=== PATIENT | female | born 1980 | race Caucasian/White ===

== ENCOUNTER 2017-06-18 19:34 | Emergency (ER) | payer OTHER ==
[2017-06-18 20:15] VITALS: BP 132/86; PULSE 74; RESP 18; TEMP 97.8
--- NOTE | 2017-06-18 20:22 | ED ---
General Adult HPI - General Chief complaint: Animal Bite Stated complaint: Health Dept Sent/Bat bite Time Seen by Provider: 06/18/17 20:22 Source: patient Mode of arrival: ambulatory Limitations: no limitations - History of Present Illness Initial comments: Patient is a 37-year-old female with no significant past medical history presents to the ED with her family for evaluation of exposure to bat in their home. Patient presents with no complaints of reports she is in her usual state of health. Per patient they recently moved into a new house in the past month. On Wednesday of last week they noted that there were 3 bats in Keily's bedroom. They called a company to remove the bats. Patient reports that on Wednesday they noted that the youngest daughter Sangeeta had a spot on her right lateral ankle which they initially thought was a bug bite. Family reports that on Wednesday of this week they wound a bat in Sangeeta's bedroom. At that time family reports they called another [employer] for removal. Initially all of the bats cannot be removed because some of them were apparently babies and unable to fly and then initial [employer] told him that they cannot remove or kill baby bats. However they believe at this time that all of the bats have been removed from the home. The employees of the second [employer] advised the family that if there is any exposure to bats that they should be evaluated by the health clinic. Patient reports that she called Sangeeta's dental technology advisor and oncologist who both advised that they be evaluated and likely the entire family will need treatment for rabies exposure. Patient went to the health department today who advised them to come to the emergency department for rabies exposure treatment. - Related Data Home Medications Medication Instructions Recorded Confirmed Cyanocobalamin (Vitamin B-12) 1,000 mcg PO DAILY 06/18/17 06/18/17 [Vitamin B-12] Allergies Allergy/AdvReac Type Severity Reaction Status Date / Time Carbamates Allergy Unknown Verified 06/18/17 20:47 formaldehyde Allergy Unknown Verified 06/18/17 20:47 nickel Allergy Rash/Hives Verified 06/18/17 20:47 Review of Systems ROS Statement: Those systems with pertinent positive or pertinent negative responses have been documented in the HPI. ROS Other: All systems not noted in ROS Statement are negative. Constitutional: Denies: fever ENT: Denies: throat pain Respiratory: Denies: cough, dyspnea Cardiovascular: Denies: chest pain Endocrine: Denies: fatigue Gastrointestinal: Denies: nausea, vomiting Genitourinary: Denies: urgency Musculoskeletal: Denies: back pain Skin: Denies: rash, lesions Neurological: Denies: headache, weakness Hematological/Lymphatic: Denies: easy bleeding, easy bruising Past Medical History Past Medical History: No Reported History History of Any Multi-Drug Resistant Organisms: None Reported Past Surgical History: No Surgical Hx Reported Past Psychological History: No Psychological Hx Reported Smoking Status: Never smoker Past Alcohol Use History: Rare Past Drug Use History: None Reported General Exam Limitations: no limitations General appearance: alert, in no apparent distress Head exam: Present: atraumatic, normocephalic, normal inspection Eye exam: Present: normal appearance, PERRL, EOMI. Absent: scleral icterus, conjunctival injection, periorbital swelling ENT exam: Present: normal exam, mucous membranes moist Neck exam: Present: normal inspection. Absent: tenderness, meningismus, lymphadenopathy Respiratory exam: Present: normal lung sounds bilaterally. Absent: respiratory distress, wheezes, rales, rhonchi, stridor Cardiovascular Exam: Present: regular rate, normal rhythm, normal heart sounds. Absent: systolic murmur, diastolic murmur, rubs, gallop, clicks GI/Abdominal exam: Present: soft, normal bowel sounds. Absent: distended, tenderness, guarding, rebound, rigid Extremities exam: Present: normal inspection, full ROM, normal capillary refill. Absent: tenderness, pedal edema, joint swelling, calf tenderness Back exam: Present: normal inspection Neurological exam: Present: alert, oriented X3, CN II-XII intact Psychiatric exam: Present: normal affect, normal mood Skin exam: Present: warm, dry, intact, normal color. Absent: rash Course Vital Signs 06/18/17 20:10 Temperature 97.8 F Pulse Rate 74 Respiratory 18 Rate Blood Pressure 132/86 O2 Sat by Pulse 97 Oximetry Medical Decision Making - Medical Decision Making Patient was seen and evaluated with her entire family at bedside Patient and family with concern for exposure to bats Will treat with rabies immunoglobin and rabies vaccine Patient care was discussed with Dr. Payne who recommended rabies immunoglobulin as well as rabies vaccine on days 0, 1, 3, 5 and 7. Weight based Immunoglobulin and rabies vaccine were ordered for today prescriptions were given for follow-up at the [facility] for repeat rabies vaccination Disposition Clinical Impression: Rabies contact Disposition: HOME SELF-CARE Condition: Good Instructions: Animal Bite (ED), Rabies Immune Globulin (By injection), Rabies Vaccine (ED) Referrals: Nonstaff,Physician [Primary Care Provider] - 1-2 days Time of Disposition: 22:14
[2017-06-18] MEDS ORDERED: RABIES IMMUNE GLOB 150 UNIT/ML 10 ML VIAL IM ONE (20:49)
[2017-06-18] MEDS ORDERED: RABIES IMMUNE GLOB 150UNIT/ML 2 ML VIAL IM ONE (21:15)
[2017-06-18] MEDS ORDERED: RABIES VACC,HUMAN DIPLOID (PF) 2.5 UNIT KIT IM ONE (21:15)
[2017-06-18] MEDS ORDERED: RABIES VACCINE (PCEC) 2.5 UNIT KIT IM ONE (21:30)
== END 2017-06-18 23:57 | disposition home or self-care (01) ==
LOC: EC 19:34
DX: Z20.3 Contact with and (suspected) exposure to rabies (principal); Z23 Encounter for immunization; Z79.899 Other long term (current) drug therapy; Z88.8 Allergy status to other drugs, medicaments and biological substances; Z91.048 Other nonmedicinal substance allergy status
CPT/HCPCS: 90375; 90471; 90675; 96372; 99283

== ENCOUNTER 2017-11-18 09:09 | Emergency (ER) | payer OTHER ==
[2017-11-18] MEDS ORDERED: IBUPROFEN 800 MG TAB PO STA (09:34)
[2017-11-18] MEDS ORDERED: ACETAMINOPHEN TAB 500 MG TAB PO STA (09:34)
--- NOTE | 2017-11-18 09:36 | ED ---
URI HPI - General Chief Complaint: Upper Respiratory Infection Stated Complaint: FLU LIKE SYMPTOMS Time Seen by Provider: 11/18/17 09:26 Source: patient, RN notes reviewed Mode of arrival: ambulatory Limitations: no limitations - History of Present Illness Initial Comments: 37-year-old female presents emergency Department chief complaint cough, fever, body aches. Patient states that she's had a dry cough since around [place] but states on Wednesday she developed a fever and change in her symptoms. She states that she developed congestion very achy with a high fever. She saw her primary care physician who thought that she did not have influenza and give her azithromycin. Patient states that she had no chest x-ray. She states that she said some sick contacts with similar symptoms but nobody with fever. Patient denies any nausea vomiting diarrhea constipation. Denies any chest pain or shortness breath. Denies ear pain, sore throat. - Related Data Home Medications Medication Instructions Recorded Confirmed Ascorbic Acid [Vitamin C] 500 mg PO DAILY 11/18/17 11/18/17 Azithromycin [Zithromax Z-pack] See Taper PO DIRECTED 11/18/17 11/18/17 Cholecalciferol [Vitamin D3] 1,000 unit PO DAILY 11/18/17 11/18/17 Hydrocodone/Chlorphen P-Stirex 5 ml PO Q12HR PRN 11/18/17 11/18/17 [Tussionex] Loratadine [Claritin] 10 mg PO DAILY 11/18/17 11/18/17 Previous Rx's Medication Instructions Recorded Oseltamivir [Tamiflu] 75 mg PO Q12HR #10 cap 11/18/17 Allergies Allergy/AdvReac Type Severity Reaction Status Date / Time Carbamates Allergy Unknown Verified 11/18/17 09:38 formaldehyde Allergy Unknown Verified 11/18/17 09:38 nickel Allergy Rash/Hives Verified 11/18/17 09:38 fragrance Allergy Rash/Hives Uncoded 11/18/17 09:25 Review of Systems ROS Statement: Those systems with pertinent positive or pertinent negative responses have been documented in the HPI. ROS Other: All systems not noted in ROS Statement are negative. Past Medical History Past Medical History: No Reported History Additional Past Medical History / Comment(s): uterine fibroids, endometrialhyperplasia History of Any Multi-Drug Resistant Organisms: None Reported Past Surgical History: No Surgical Hx Reported Additional Past Surgical History / Comment(s): wisdom teeth Past Psychological History: Depression Smoking Status: Never smoker Past Alcohol Use History: None Reported Past Drug Use History: None Reported General Exam Limitations: no limitations General appearance: alert, in no apparent distress Head exam: Present: atraumatic, normocephalic, normal inspection Eye exam: Present: normal appearance, PERRL, EOMI. Absent: scleral icterus, conjunctival injection, periorbital swelling ENT exam: Present: normal exam, mucous membranes dry, mucous membranes moist, TM 's normal bilaterally, normal external ear exam Neck exam: Present: normal inspection, full ROM. Absent: tenderness, meningismus, lymphadenopathy Respiratory exam: Present: normal lung sounds bilaterally. Absent: respiratory distress, wheezes, rales, rhonchi, stridor Cardiovascular Exam: Present: normal rhythm, tachycardia, normal heart sounds. Absent: systolic murmur, diastolic murmur, rubs, gallop, clicks GI/Abdominal exam: Present: soft, normal bowel sounds. Absent: distended, tenderness, guarding, rebound, rigid Course Vital Signs 11/18/17 09:20 Temperature 102.2 F H Pulse Rate 110 H Respiratory 20 Rate Blood Pressure 127/83 O2 Sat by Pulse 96 Oximetry Medical Decision Making - Medical Decision Making 37-year-old female presented emergency from for fever chills body aches it started 2 days ago. Patient's symptoms consistent with influenza influenza A positive. Chest x-ray shows no acute abnormality. Patient is requesting Tamiflu it did explain and may not be helpful although will be prescribed. We discussed Tylenol Motrin and have her recheck in 2 days. - Lab Data Lab Results 11/18/17 Range/Units 09:35 Influenza Type A RNA Detected H (Not Detectd) Influenza Type B (PCR) Not Detected (Not Detectd) Disposition Clinical Impression: Influenza Disposition: HOME SELF-CARE Condition: Stable Instructions: Influenza (ED) Additional Instructions: Please return to the Emergency Department if symptoms worsen or any other concerns. Prescriptions: Oseltamivir [Tamiflu] 75 mg PO Q12HR #10 cap Referrals: Nonstaff,Physician [Primary Care Provider] - 1-2 days Time of Disposition: 10:18
--- NOTE | 2017-11-18 09:57 | XR ---
EXAMINATION TYPE: XR chest 2V DATE OF EXAM: 11/18/2017 COMPARISON: NONE HISTORY: Cough and congestion for 2 weeks. Fever for 2 days. TECHNIQUE: Frontal and lateral views of the chest are obtained. FINDINGS: There is no focal air space opacity, pleural effusion, or pneumothorax seen. The cardiac silhouette size is within normal limits. The osseous structures are intact. IMPRESSION: No suspicious acute pulmonary process.
[2017-11-18 10:35] VITALS: BP 126/75; PULSE 102; RESP 16; TEMP 100
== END 2017-11-18 10:32 | disposition home or self-care (01) ==
LOC: EC 09:09
DX: J09.X2 Influenza due to identified novel influenza A virus with other respiratory manifestations (principal); Z79.899 Other long term (current) drug therapy; Z88.8 Allergy status to other drugs, medicaments and biological substances; Z91.048 Other nonmedicinal substance allergy status
CPT/HCPCS: 71046; 87502; 99283

== ENCOUNTER 2019-11-04 02:56 | Emergency (ER) | payer OTHER ==
--- NOTE | 2019-11-04 03:38 | XR ---
EXAMINATION TYPE: XR chest 2V DATE OF EXAM: 11/04/2019 COMPARISON: 11/18/2017 HISTORY: Cough TECHNIQUE: 2 views FINDINGS: Heart and mediastinum are normal. Lungs are clear. Diaphragm is normal. Bony thorax appears normal. IMPRESSION: Normal chest. No change.
--- NOTE | 2019-11-04 04:00 | ED ---
General Adult HPI - General Chief complaint: Upper Respiratory Infection Stated complaint: cough Time Seen by Provider: 11/04/19 03:07 Source: patient, RN notes reviewed, old records reviewed Mode of arrival: ambulatory Limitations: no limitations - History of Present Illness Initial comments: 39-year-old female patient with no pertinent past history presents to ED for chief complaint of cough, fever. Patient was has not ongoing since 10/31. Patient reports that the cough is productive. Patient reports that she wakes up she feels as if she has congestion in her chest that she cannot cough up. Patient reports that she has some left lateral rib pain with coughing. Denies any other complaints. Denies any chance of being . Systemic: Pt denies fatigue, fever/chills, rash. Pt denies weakness, night sweats, weight loss. Neuro: Pt denies headache, visual disturbances, syncope or pre-syncope. HEENT: Pt denies ocular discharge or irritation, otalgia, rhinorrhea, pharyngitis or notable lymphadenopathy. Cardiopulmonary: Pt denies SOB, heart palpitations, dyspnea on exertion. Abdominal/GI: Pt denies abdominal pain, n/v/d. : Pt denies dysuria, burning w/ urination, frequency/urgency. Denies new onset urinary or bowel incontinence. MSK: Pt denies myalgia, loss of strength or function in extremities. Neuro: Pt denies new onset weakness, paresthesias. - Related Data Home Medications Medication Instructions Recorded Confirmed Ascorbic Acid [Vitamin C] 500 mg PO DAILY 11/18/17 11/18/17 Azithromycin [Zithromax Z-pack] See Taper PO DIRECTED 11/18/17 11/18/17 Cholecalciferol [Vitamin D3] 1,000 unit PO DAILY 11/18/17 11/18/17 Hydrocodone/Chlorphen P-Stirex 5 ml PO Q12HR PRN 11/18/17 11/18/17 [Tussionex] Loratadine [Claritin] 10 mg PO DAILY 11/18/17 11/18/17 Previous Rx's Medication Instructions Recorded Oseltamivir [Tamiflu] 75 mg PO Q12HR #10 cap 11/18/17 Albuterol Inhaler [Ventolin Hfa 1 - 2 puff INHALATION Q4-6H PRN #1 11/04/19 Inhaler] inhaler predniSONE 50 mg PO DAILY #4 tab 12/28/19 Allergies Allergy/AdvReac Type Severity Reaction Status Date / Time Carbamates Allergy Unknown Verified 11/18/17 09:38 formaldehyde Allergy Unknown Verified 11/18/17 09:38 nickel Allergy Rash/Hives Verified 11/18/17 09:38 fragrance Allergy Rash/Hives Uncoded 11/18/17 09:25 Review of Systems ROS Statement: Those systems with pertinent positive or pertinent negative responses have been documented in the HPI. ROS Other: All systems not noted in ROS Statement are negative. Past Medical History Past Medical History: No Reported History Additional Past Medical History / Comment(s): uterine fibroids, endometrialhyperplasia History of Any Multi-Drug Resistant Organisms: None Reported Past Surgical History: No Surgical Hx Reported Additional Past Surgical History / Comment(s): wisdom teeth Past Psychological History: Depression Smoking Status: Never smoker Past Alcohol Use History: None Reported Past Drug Use History: None Reported General Exam - General Exam Comments Initial Comments: Constitutional: NAD, AOX3, Pt has pleasant affect. HEENT: NC/AT, trachea midline, neck supple, no lymphadenopathy. Posterior pharynx non erythematous, without exudates. External ears appear normal, without discharge. Mucous membranes moist. Eyes PERRLA, EOM intact. There is no scleral icterus. No pallor noted. Cardiopulmonary: RRR, no murmurs, rubs or gallops, no JVD noted. Lungs CTAB in anterior and posterior lee. No peripheral edema. Abdominal exam: Abdomen soft and non-distended. Abdomen non-tender to palpation in all 4 quadrants. Bowel sounds active in LLQ. No hepatosplenomegaly. No e cchymosis Neuro: CN II-XII grossly intact. No nuchal rigidity. No raccon eyes, no doll sign, no hemotympanum. No cervical spinal tenderness. MSK: No posterior calf tenderness bilaterally, homans sign negative bilaterally. Posterior tibialis and radial pulse +2 bilaterally. Sensation intact in upper and lower extremities. Full active ROM in upper and lower extremities, 5/5 stregnth. Limitations: no limitations Course Vital Signs 11/04/19 11/04/19 03:01 05:10 Temperature 98.4 F 98.5 F Pulse Rate 107 H 90 Respiratory 18 17 Rate Blood Pressure 149/94 140/95 O2 Sat by Pulse 98 97 Oximetry Medical Decision Making - Medical Decision Making 39-year-old female patient presents to ED chief complaint 2 days of cough and fever. Patient vital signs are stable, afebrile. Physical exam did not display acute pathology. Chest x-ray is negative. Patient likely experiencing a a bronchitis-like syndrome. Will be discharged with steroids and breathing treatment. Will follow up with primary care provider in 1-2 days. Return to ER physician worsens. Patient offered and requested to be discharged prior to resolving influenza swab. Patient was called on 11/04 at 1800 with results which are negative. At the time patient endorsed that she still had a cough and was recommended to return to ER if condition worsens or if any new or concerning symptoms develop. Case discussed with Dr. Pete. - Lab Data Lab Results 11/04/19 Range/Units 03:36 Influenza Type A RNA Not Detected (Not Detectd) Influenza Type B (PCR) Not Detected (Not Detectd) Disposition Clinical Impression: Bronchitis, Cough Disposition: HOME SELF-CARE Condition: Stable Instructions (If sedation given, give patient instructions): Acute Bronchitis (ED), Acute Cough (ED) Additional Instructions: Take medication as directed. Use breathing treatments as needed. Follow up with primary care provider tomorrow. Return to ER if condition worsens. Prescriptions: predniSONE 50 mg PO DAILY #4 tab Albuterol Inhaler [Ventolin Hfa Inhaler] 1 - 2 puff INHALATION Q4-6H PRN #1 inhaler PRN Reason: Cough Is patient prescribed a controlled substance at d/c from ED?: No Referrals: Burke Edouard MD [Primary Care Provider] - 1-2 days
[2019-11-04] MEDS ORDERED: predniSONE 50 MG TAB PO STA (04:25)
[2019-11-04 05:10] VITALS: BP 140/95; PULSE 90; RESP 17; TEMP 98.5
== END 2019-11-04 04:52 | disposition home or self-care (01) ==
LOC: EC 02:56
DX: J40 Bronchitis, not specified as acute or chronic (principal); Z91.048 Other nonmedicinal substance allergy status; Z91.09 Other allergy status, other than to drugs and biological substances
CPT/HCPCS: 87502; 71046; 99284; J7512

== ENCOUNTER 2019-11-05 05:55 | Emergency (ER) | payer OTHER ==
[2019-11-05] MEDS ORDERED: ACETAMINOPHEN TAB 325 MG TAB PO STA (06:34)
[2019-11-05] MEDS ORDERED: IPRATROPIUM-ALBUTEROL 3 ML NEB INHALATION STA (06:34)
--- NOTE | 2019-11-05 06:35 | ED ---
SOB HPI - General Chief Complaint: Shortness of Breath Stated Complaint: difficulty breathing Time Seen by Provider: 11/05/19 06:19 Source: patient Mode of arrival: ambulatory Limitations: no limitations - History of Present Illness Initial Comments: 39-year-old female presenting for cough congestion fever x 5 days and shortness of breath x 1 day. Patient states she was recently discharged from the hospital however she feels like she is going to stop breathing when she goes to bed because she is so congested, she states she feels more SOB than when she originally presented.Patient denies chest pain, denies leg swelling, nausea, vomiting, diarrhea, abdominal pain, ear pain. Patient admits to worsening cough stating that the symptoms originally began 10/31 and she was evaluated by her PCP on Wednesday who did an influenza test (-). Patient presented earlier this morning and was diagnosed with a viral disease and discharged with inhaler which patient thinks seems to help and steroids. Patient states she did not feel that short of breath earlier and feels she has increased sputum production. Patient present to the ER with obvious cough, congestion. HR elevated. - Related Data Previous Rx's Medication Instructions Recorded Albuterol Inhaler [Ventolin Hfa 1 - 2 puff INHALATION Q4-6H PRN #1 11/04/19 Inhaler] inhaler predniSONE 50 mg PO DAILY #4 tab 11/04/19 Azithromycin [Zithromax Z-pack] 0 mg PO DIRECTED #6 tab 11/05/19 Ipratropium-Albuterol Nebulize 3 ml INHALATION Q4-6H PRN 7 Days 11/05/19 [Duoneb 0.5 mg-3 mg/3 ml Soln] #28 neb Allergies Allergy/AdvReac Type Severity Reaction Status Date / Time Carbamates Allergy Unknown Verified 11/05/19 11:24 formaldehyde Allergy Unknown Verified 11/05/19 11:24 nickel Allergy Rash/Hives Verified 11/05/19 11:24 fragrance Allergy Rash/Hives Uncoded 11/05/19 11:24 Review of Systems ROS Statement: Those systems with pertinent positive or pertinent negative responses have been documented in the HPI. ROS Other: All systems not noted in ROS Statement are negative. Past Medical History Past Medical History: No Reported History Additional Past Medical History / Comment(s): uterine fibroids, endometrialhyperplasia History of Any Multi-Drug Resistant Organisms: None Reported Past Surgical History: No Surgical Hx Reported Additional Past Surgical History / Comment(s): wisdom teeth Past Psychological History: Depression Smoking Status: Never smoker Past Alcohol Use History: None Reported Past Drug Use History: None Reported General Exam - General Exam Comments Initial Comments: General: The patient is awake and alert, in no distress, and does not appear acutely ill. Eye: +3 mm pupils are equal, round and reactive to light, extra-ocular movements are intact. No nystagmus. There is injected conjunctiva bilaterally there is purulent drainage in the eyes bilaterally no. Extraocular movements are erythema of the surrounding soft tissues nor swelling. No signs of icterus. No photophobia Ears, nose, mouth and throat: There are moist mucous membranes and no oral lesions. Oropharynx was not erythematous there is no tonsillar enlargement exudates or lesions. Uvula midline. Tympanic membranes are not erythematous or is no effusions bulging or retraction. No tenderness to palpation of the mastoid. No anterior cervical lymphadenopathy. Rhinorrhea, clear and bilateral nares. No tripoding, no drooling. Neck: The neck is supple, there is no tenderness or JVD. No nuchal rigidity Cardiovascular: There is a regular rate and rhythm. No murmur, rub or gallop is appreciated. Respiratory: Lungs are clear to auscultation, respirations are non-labored, breath sounds are equal. No wheezes, stridor, rales, or rhonchi. No retractions or abdominal breathing. Gastrointestinal: Soft, non-distended, non-tender abdomen without masses or organomegaly noted. There is no rebound or guarding present. Bowel sounds are unremarkable. Musculoskeletal: Normal ROM, no tenderness. Strength 5/5. Sensation intact. Radial pulses equal bilaterally 2+. Neurological: A&O x 3. CN II-XII intact grossly, There are no obvious motor or sensory deficits. Coordination appears grossly intact. Speech appears normal, no muffling. Skin: Skin is warm and dry and no rashes or lesions are noted. No extremity edema Psychiatric: Cooperative Limitations: no limitations Course Vital Signs 11/05/19 11/05/19 11/05/19 06:10 07:10 07:20 Temperature 99.6 F Pulse Rate 106 H 97 115 H Respiratory 18 Rate Blood Pressure 135/89 O2 Sat by Pulse 97 Oximetry 1211/05/19 11/05/19 09:00 10:00 11:00 Temperature 98.5 F Pulse Rate 85 79 75 Respiratory 20 20 20 Rate Blood Pressure 126/84 127/85 128/80 O2 Sat by Pulse 98 98 98 Oximetry - Reevaluation(s) Reevaluation #1: Ambulatory oxygen saturations range 95-97%, repeat VS HR 89 bpm 11/05/19 10:57 Medical Decision Making - Medical Decision Making Nontoxic-appearing 39-year-old female presenting today for chief complaint of shortness of breath. Patient states she has cough congestion she states she showed congested she feels that she can't breathe. Patient states she is scared that she will feel debridement night due to the congestion. Patient's chest x- ray which was taken earlier this morning reveal no focalized infection, Influenza (-), troponin (-) with no EKG findings consistent with myocarditis patient denies chest pain. Patient dimer (-), Mild leukocytosis, no abdominal pain. B/l injection of the conjunctiva. Patient has childhood vaccines. Patient ambulatory oxygen satisfactory at 95-97% patient gvein IV hydration antipyretics. At this time feel patient is stable for discharge with DuoNeb treatments this seemed to help alleviate patient's shortness of breath the emergency department. Patient agreed with this care plan discharge at this time return parameters were discussed at length patient provided an antibiotic prescription given the leukocytosis with concern for possible developing pneumonia. Although at this time do feel this is a viral syndrome including patient's bilateral conjunctivitis discussed case in detail with any provided Dr. Giordano was agreeable to plan discharge at this time - Lab Data Result diagrams: 11/05/19 07:11 11/05/19 07:11 Lab Results 11/05/19 11/05/19 11/05/19 Range/Units 07:11 07:11 07:11 WBC 12.9 H (3.8-10.6) k/uL RBC 4.39 (3.80-5.40) m/uL Hgb 12.4 (11.4-16.0) gm/dL Hct 38.1 (34.0-46.0) % MCV 86.7 (80.0-100.0) fL MCH 28.2 (25.0-35.0) pg MCHC 32.6 (31.0-37.0) g/dL RDW 14.5 (11.5-15.5) % Plt Count 275 (150-450) k/uL Neutrophils % 77 % Lymphocytes % 14 % Monocytes % 6 % Eosinophils % 1 % Basophils % 0 % Neutrophils # 9.9 H (1.3-7.7) k/uL Lymphocytes # 1.8 (1.0-4.8) k/uL Monocytes # 0.8 (0-1.0) k/uL Eosinophils # 0.1 (0-0.7) k/uL Basophils # 0.0 (0-0.2) k/uL D-Dimer 0.32 (<0.60) mg/L FEU Sodium 139 (137-145) mmol/L Potassium 4.0 (3.5-5.1) mmol/L Chloride 102 (98-107) mmol/L Carbon Dioxide 29 (22-30) mmol/L Anion Gap 8 mmol/L BUN 3 L (7-17) mg/dL Creatinine 0.65 (0.52-1.04) mg/dL Est GFR (CKD-EPI)AfAm >90 (>60 ml/min/1.73 sqM) Est GFR (CKD-EPI)NonAf >90 (>60 ml/min/1.73 sqM) Glucose 114 H (74-99) mg/dL Calcium 9.2 (8.4-10.2) mg/dL Total Bilirubin 0.7 (0.2-1.3) mg/dL AST 29 (14-36) U/L ALT 20 (4-34) U/L Alkaline Phosphatase 94 (38-126) U/L Troponin I (0.000-0.034) ng/mL Total Protein 6.8 (6.3-8.2) g/dL Albumin 3.7 (3.5-5.0) g/dL 11/05/19 Range/Units 07:11 WBC (3.8-10.6) k/uL RBC (3.80-5.40) m/uL Hgb (11.4-16.0) gm/dL Hct (34.0-46.0) % MCV (80.0-100.0) fL MCH (25.0-35.0) pg MCHC (31.0-37.0) g/dL RDW (11.5-15.5) % Plt Count (150-450) k/uL Neutrophils % % Lymphocytes % % Monocytes % % Eosinophils % % Basophils % % Neutrophils # (1.3-7.7) k/uL Lymphocytes # (1.0-4.8) k/uL Monocytes # (0-1.0) k/uL Eosinophils # (0-0.7) k/uL Basophils # (0-0.2) k/uL D-Dimer (<0.60) mg/L FEU Sodium (137-145) mmol/L Potassium (3.5-5.1) mmol/L Chloride (98-107) mmol/L Carbon Dioxide (22-30) mmol/L Anion Gap mmol/L BUN (7-17) mg/dL Creatinine (0.52-1.04) mg/dL Est GFR (CKD-EPI)AfAm (>60 ml/min/1.73 sqM) Est GFR (CKD-EPI)NonAf (>60 ml/min/1.73 sqM) Glucose (74-99) mg/dL Calcium (8.4-10.2) mg/dL Total Bilirubin (0.2-1.3) mg/dL AST (14-36) U/L ALT (4-34) U/L Alkaline Phosphatase (38-126) U/L Troponin I <0.012 (0.000-0.034) ng/mL Total Protein (6.3-8.2) g/dL Albumin (3.5-5.0) g/dL Disposition Clinical Impression: Upper respiratory infection Disposition: HOME SELF-CARE Condition: Good Instructions (If sedation given, give patient instructions): Upper Respiratory Infection (ED) Additional Instructions: Please use medication as discussed. Please follow-up with family doctor in the next 2 days. Please return to emergency room if the symptoms increase or worsen or for any other concerns. Prescriptions: Ipratropium-Albuterol Nebulize [Duoneb 0.5 mg-3 mg/3 ml Soln] 3 ml INHALATION Q4-6H PRN 7 Days #28 neb PRN Reason: Wheezing Azithromycin [Zithromax Z-pack] 0 mg PO DIRECTED #6 tab Is patient prescribed a controlled substance at d/c from ED?: No Referrals: Burke Edouard MD [Primary Care Provider] - 1-2 days Time of Disposition: 10:46
[2019-11-05] MEDS ORDERED: SODIUM CHLORIDE 0.9% 1,000 ML IV ONE (06:41)
[2019-11-05 07:26] LABS: Basophils % (A) 0 %; Eosinophils # (A) 0.1 k/uL (0-0.7); Eosinophils % (A) 1 %; HCT 38.1 % (34.0-46.0); HGB 12.4 gm/dL (11.4-16.0); Lymphocytes # (A) 1.8 k/uL (1.0-4.8); Lymphocytes % (A) 14 %; MCH 28.2 pg (25.0-35.0); MCHC 32.6 g/dL (31.0-37.0); MCV 86.7 fL (80.0-100.0); Mean Platelet Volume 7.2; Monocytes # (A) 0.8 k/uL (0-1.0); Monocytes % (A) 6 %; Neutrophils # (A) 9.9 k/uL (1.3-7.7); Neutrophils % (A) 77 %; Platelet Count 275 k/uL (150-450); RBC 4.39 m/uL (3.80-5.40); RDW 14.5 % (11.5-15.5); WBC 12.9 k/uL (3.8-10.6)
[2019-11-05 07:47] LABS: ALT 20 U/L (4-34); AST 29 U/L (14-36); African American GFR (CKD) >90 (>60 ml/min/1.73 sqM); Albumin 3.7 g/dL (3.5-5.0); Alkaline Phosphatase 94 U/L (38-126); Anion Gap 8 mmol/L; Blood Urea Nitrogen 3 mg/dL (7-17); Calcium 9.2 mg/dL (8.4-10.2); Carbon Dioxide 29 mmol/L (22-30); Chloride 102 mmol/L (98-107); Glucose 114 mg/dL (74-99); Non-African American GFR(CKD) >90 (>60 ml/min/1.73 sqM); Sodium 139 mmol/L (137-145); Total Bilirubin 0.7 mg/dL (0.2-1.3); Total Protein 6.8 g/dL (6.3-8.2)
[2019-11-05] MEDS ORDERED: SODIUM CHLORIDE 0.9% 500 ML 500 ML IV ONE ×2 (07:56→09:32)
[2019-11-05] MEDS ORDERED: IBUPROFEN 800 MG TAB PO STA (09:31)
[2019-11-05 11:05] VITALS: RESP 20
[2019-11-05 11:06] VITALS: TEMP 98.5
[2019-11-05 11:07] VITALS: BP 128/80; PULSE 75
== END 2019-11-05 11:18 | disposition home or self-care (01) ==
LOC: EC 05:55
DX: J06.9 Acute upper respiratory infection, unspecified (principal); B34.9 Viral infection, unspecified; H10.9 Unspecified conjunctivitis; Z91.048 Other nonmedicinal substance allergy status
CPT/HCPCS: 36415; 80053; 84484; 85025; 85379; 93005; 94640; 99285

== ENCOUNTER → 2021-06-09 | Outpatient (CLI) | payer OTHER ==
--- NOTE | 2021-06-16 10:18 | MM ---
Reason for exam: screening (asymptomatic). Last mammogram was performed 5 years and 4 months ago. History: Took hormonal contraceptives for 3 years. Physical Findings: A clinical breast exam by your physician is recommended on an annual basis and results should be correlated with mammographic findings. MG 3D Screening Mammo W/Cad Bilateral CC and MLO view(s) were taken. Prior study comparison: February 20, 2016, mammogram, performed at [facility]. The breast tissue is heterogeneously dense. This may lower the sensitivity of mammography. No significant changes when compared with prior studies. ASSESSMENT: Negative, BI-RAD 1 RECOMMENDATION: Routine screening mammogram of both breasts in 1 year.
== END | disposition home or self-care (01) ==
LOC: RADMAMWWP 16:35
PROVIDERS: ATTEND Family Medicine
DX: Z12.31 Encounter for screening mammogram for malignant neoplasm of breast (principal); Z79.3 Long term (current) use of hormonal contraceptives
CPT/HCPCS: 77063; 77067

== ENCOUNTER → 2022-06-18 | Outpatient (CLI) | payer OTHER ==
--- NOTE | 2022-06-19 15:50 | MM ---
Reason for Exam: Screening (asymptomatic). Last screening mammogram was performed 12 month(s) ago. Patient History: Menarche at age 12. First Full-Term at age 23. Patient used Hormonal Contraceptives for 3 years. Risk Values: Briseida 5 year model risk: 0.6%. NCI Lifetime model risk: 8.9%. Prior Study Comparison: 02/20/2016 Screening Mammogram, [facility]. 06/09/2021 Bilateral Screening Mammogram, [facility]. Tissue Density: There are scattered fibroglandular densities. Findings: Analyzed By CAD. No suspicious groups of microcalcifications, spiculated or lobular masses, architectural distortion or other secondary signs of malignancy are mammographically apparent. Overall Assessment: Benign, BI-RAD 2 Management: Screening Mammogram of both breasts in 1 year. A negative mammogram report should not preclude additional follow up of suspicious palpable abnormalities. Patient should continue monthly self breast exam. A clinical breast exam by your physician is recommended on an annual basis and results should be correlated with mammographic findings. Electronically signed and approved by: Paco Lopez D.O. Radiologis
== END | disposition home or self-care (01) ==
LOC: RADMAMWWP 13:53
PROVIDERS: ATTEND Family Medicine
DX: Z12.31 Encounter for screening mammogram for malignant neoplasm of breast (principal)
CPT/HCPCS: 77063; 77067

== ENCOUNTER → 2023-06-24 | Outpatient (CLI) | payer OTHER ==
--- NOTE | 2023-06-25 10:28 | MM ---
Reason for Exam: Screening (asymptomatic). Last screening mammogram was performed 12 month(s) ago. Patient History: Menarche at age 12. First Full-Term at age 23. Patient has history of breast feeding. Patient used Hormonal Contraceptives for 3 years. Last menstrual period: 06/15/2023 Risk Values: Briseida 5 year model risk: 0.6%. NCI Lifetime model risk: 8.8%. Prior Study Comparison: 02/20/2016 Screening Mammogram, [facility]. 06/09/2021 Bilateral Screening Mammogram, [facility]. 06/18/2022 Bilateral MG 3D screening mammo w/cad, [facility]. Tissue Density: The breast tissue is heterogeneously dense. This may lower the sensitivity of mammography. Findings: Analyzed By CAD. Asymmetric density right breast at the approximate 12:00 position 6 cm from the nipple. Additional views are recommended. No suspicious calcifications are seen within either breast. No left breast masses appreciated. Overall Assessment: Incomplete: need additional imaging evaluation, BI-RAD 0 Management: Diagnostic Mammogram of the right breast. . Patient should continue monthly self-breast exams. A clinical breast exam by your physician is recommended on an annual basis. This exam should not preclude additional follow-up of suspicious palpable abnormalities. Note on Briseida scores and lifetime risk: 1. A Briseida score greater than 3% is considered moderate risk. If this is the case, consider specialist referral to assess eligibility for a risk reducing agent. 2. If overall lifetime risk for the development of breast cancer is 20% or higher, the patient may qualify for future screening with alternating mammogram and breast MRI. Electronically signed and approved by: Yordan Kohli M.D. Radiologis
== END | disposition home or self-care (01) ==
LOC: RADMAMWWP 09:46
PROVIDERS: ATTEND Family Medicine
DX: Z12.31 Encounter for screening mammogram for malignant neoplasm of breast (principal)
CPT/HCPCS: 77063; 77067

== ENCOUNTER → 2023-07-01 | Outpatient (CLI) | payer OTHER ==
--- NOTE | 2023-07-01 10:40 | MM ---
Reason for Exam: Additional evaluation requested from abnormal screening. Last screening mammogram was performed less than 1 month ago. Patient History: Menarche at age 12. First Full-Term at age 23. Patient has history of breast feeding. Patient used Hormonal Contraceptives for 3 years. Risk Values: Briseida 5 year model risk: 0.6%. NCI Lifetime model risk: 8.8%. Prior Study Comparison: 02/20/2016 Screening Mammogram, [facility]. 06/09/2021 Bilateral Screening Mammogram, [facility]. 06/18/2022 Bilateral MG 3D screening mammo w/cad, [facility]. 06/24/2023 Bilateral MG 3D screening mammo w/cad, [facility]. Tissue Density: Right: There are scattered fibroglandular densities. Findings: Analyzed By CAD. Asymmetric density in the 12:00 position appears improved on spot compression imaging. Precautionary six-month follow-up is recommended. Overall Assessment: Probably benign, BI-RAD 3 Management: Diagnostic Mammogram of the right breast in 6 months. . Results were given to the patient verbally at the time of exam. Patient should continue monthly self-breast exams. A clinical breast exam by your physician is recommended on an annual basis. This exam should not preclude additional follow-up of suspicious palpable abnormalities. Note on Briseida scores and lifetime risk: 1. A Briseida score greater than 3% is considered moderate risk. If this is the case, consider specialist referral to assess eligibility for a risk reducing agent. 2. If overall lifetime risk for the development of breast cancer is 20% or higher, the patient may qualify for future screening with alternating mammogram and breast MRI. Electronically signed and approved by: Yordan Kohli M.D. Radiologis
== END | disposition home or self-care (01) ==
LOC: RADMAMWWP 10:13
PROVIDERS: ATTEND Family Medicine
DX: R92.8 Other abnormal and inconclusive findings on diagnostic imaging of breast (principal)
CPT/HCPCS: 77061; 77065

== ENCOUNTER → 2024-01-03 | Outpatient (CLI) | payer OTHER ==
--- NOTE | 2024-01-03 15:03 | MM ---
Reason for Exam: Follow-up at short interval from prior study. Last screening mammogram was performed 6 month(s) ago. Patient History: Menarche at age 12. First Full-Term at age 23. Patient has history of breast feeding. Patient used Hormonal Contraceptives for 3 years. Last menstrual period: 12/09/2023 Risk Values: Briseida 5 year model risk: 0.6%. NCI Lifetime model risk: 8.8%. Prior Study Comparison: 06/18/2022 Bilateral MG 3D screening mammo w/cad, [facility]. 06/24/2023 Bilateral MG 3D screening mammo w/cad, [facility]. 07/01/2023 Right MG 3D work up w/cad RT, [facility]. Tissue Density: Right: The breast tissue is heterogeneously dense. This may lower the sensitivity of mammography. Findings: Analyzed By CAD. Pattern appears stable. A focal asymmetry in the upper outer mid to posterior right breast is increasing size interval. Additional evaluation with ultrasound is recommended. Overall Assessment: Incomplete: need additional imaging evaluation, BI-RAD 0 Management: Diagnostic Breast Ultrasound of the right breast. A negative mammogram report should not preclude additional follow up of suspicious palpable abnormalities. Patient should continue monthly self breast exam. A clinical breast exam by your physician is recommended on an annual basis and results should be correlated with mammographic findings. Electronically signed and approved by: Paco Lopez D.O. Radiologis
--- NOTE | 2024-01-03 15:36 | USB ---
Reason for Exam: Additional evaluation requested from abnormal screening. Patient History: Menarche at age 12. First Full-Term at age 23. Patient has history of breast feeding. Patient used Hormonal Contraceptives for 3 years. Risk Values: Briseida 5 year model risk: 0.6%. NCI Lifetime model risk: 8.8%. Technique: Method: Targeted. Prior Study Comparison: 06/18/2022 Bilateral MG 3D screening mammo w/cad, [facility]. 06/24/2023 Bilateral MG 3D screening mammo w/cad, [facility]. 07/01/2023 Right MG 3D work up w/cad RT, [facility]. Findings: The upper outer quadrant of the right breast, the axilla of the right breast and the retroareolar of the right breast were scanned. No solid or cystic masses are identified. There is some focal dense tissue present in the upper outer quadrant right breast by ultrasound. This appears to correlate with the mammographic findings. Overall Assessment: Probably benign, BI-RAD 3 Management: Diagnostic Mammogram of the right breast in 6 months. A clinical breast exam by your physician is recommended on an annual basis and results should be correlated with mammographic findings. This exam should not preclude additional follow-up of suspicious palpable abnormalities. Results were given to the patient verbally at the time of exam. Electronically signed and approved by: Paco Lopez D.O. Radiologis
== END | disposition home or self-care (01) ==
LOC: RADMAMWWP 14:40
PROVIDERS: ATTEND Family Medicine
DX: R92.331 Mammographic heterogeneous density, right breast (principal)
CPT/HCPCS: 77061; 77065

== ENCOUNTER 2024-02-11 10:11 | Day surgery (SDC) | payer OTHER ==
[2024-02-11] MEDS ORDERED: LIDOCAINE 1% (10MG/ML) FOR IV START INTRADERMA PRN (10:39)
[2024-02-11 10:48] VITALS: TEMP 98.6
[2024-02-11] MEDS: LACTATED RINGERS 1,000 ML IV SCH (10:53)
[2024-02-11] MEDS ORDERED: PROPOFOL 10 MG/ML 20 ML VIAL IV ONE (11:23)
--- NOTE | 2024-02-11 11:32 | P.PCN ---
Date of Procedure: 02/11/24 Procedure(s) Performed: BRIEF HISTORY: Patient is a 43-year-old, pleasant, white female scheduled for an upper endoscopy as a part of evaluation of chronic cough for the last 3-4 years duration. Has occasional heartburn. She was given a trial of Prilosec 20 mg daily for 3 months with no help. PROCEDURE PERFORMED: Esophagogastroduodenoscopy with biopsy PREOPERATIVE DIAGNOSIS: Chronic cough/occasional GERD IV sedation per anesthesia. PROCEDURE: After informed consent was obtained, the patient was brought into the endoscopy unit. IV sedation was administered by Anesthesia under continuous monitoring. Initially the Olympus GIF-140 video endoscope was inserted into the mouth. Esophagus intubated without any difficulty. It was gradually advanced into the stomach and duodenum and carefully examined. The bulb and the second part of the duodenum appeared normal. The scope at this time was withdrawn to the stomach, adequately insufflated with air, and upon careful examination, mucosa of the antrum,mild gastritis and biopsies were done from this area. Mucosa of the body, cardia and the fundus appeared normal. The scope was then withdrawn into the esophagus. The GE junction was located at 39 cm from the incisors. The esophagus appeared normal. There were no erosions or ulcerations seen , biopsies were done from the distal esophagusand the patient tolerated the procedure well. IMPRESSION: 1. Mild antral gastritis. 2. Normal-appearing esophagus with no runs of esophagitis or esophageal stricture. RECOMMENDATIONS: The findings of this examination were discussed with the patient as well as a family. She was advised to follow with the biopsy results.. Continue with antireflux measures.
[2024-02-11 12:13] VITALS: BP 121/79; PULSE 67; RESP 18
== END 2024-02-11 12:06 | disposition home or self-care (01) ==
LOC: ORWHC2ENDO 10:11
PROVIDERS: ATTEND Internal Medicine Gastroenterology
DX: K21.00 Gastro-esophageal reflux disease with esophagitis, without bleeding (principal); K29.50 Unspecified chronic gastritis without bleeding; J45.909 Unspecified asthma, uncomplicated; F32.A Depression, unspecified; Z88.8 Allergy status to other drugs, medicaments and biological substances; Z91.09 Other allergy status, other than to drugs and biological substances; Z79.899 Other long term (current) drug therapy
CPT/HCPCS: 81025; 88305; 43239; J2704

== ENCOUNTER → 2024-07-11 | Outpatient (CLI) | payer OTHER ==
--- NOTE | 2024-07-16 11:31 | MM ---
Reason for Exam: Screening (asymptomatic). Last mammogram was performed 1 year(s) and 1 month(s) ago. Patient History: Menarche at age 12. First Full-Term at age 23. Patient has history of breast feeding. Patient used Hormonal Contraceptives for 3 years. Risk Values: Briseida 5 year model risk: 0.7%. NCI Lifetime model risk: 8.7%. Prior Study Comparison: 06/24/2023 Bilateral MG 3D screening mammo w/cad, [facility]. 07/01/2023 Right MG 3D work up w/cad RT, [facility]. 01/03/2024 Right MG 3D diag mammo w/cad RT, [facility]. Tissue Density: The breasts are heterogeneously dense, which may obscure small masses. Findings: Analyzed By CAD. Right breast: There is no suspicious group of microcalcifications or new suspicious mass. Left breast: There is no suspicious group of microcalcifications or new suspicious mass. Overall Assessment: Negative, BI-RAD 1 Management: Screening Mammogram of both breasts in [address] [facility] will attempt to contact patient to return for supplemental views and ultrasound if indicated. Patient should continue monthly self-breast exams. A clinical breast exam by your physician is recommended on an annual basis. This exam should not preclude additional follow-up of suspicious palpable abnormalities. Note on Briseida scores and lifetime risk: 1. A Brsieida score greater than 3% is considered moderate risk. If this is the case, consider specialist referral to assess eligibility for a risk reducing agent. 2. If overall lifetime risk for the development of breast cancer is 20% or higher, the patient may qualify for future screening with alternating mammogram and breast MRI. Electronically signed and approved by: Richard Sifuentes DO
== END | disposition home or self-care (01) ==
LOC: RADMAMWWP 08:59
PROVIDERS: ATTEND Family Medicine
DX: Z12.31 Encounter for screening mammogram for malignant neoplasm of breast
CPT/HCPCS: 77063; 77067